=== PATIENT | female | born 1985 | race Caucasian/White ===

== ENCOUNTER 2020-04-28 10:24 | Emergency (ER) | payer OTHER ==
[~2020-04-28] VITALS: Ht 177.8 cm; Wt 81.7 kg
[2020-04-28] MEDS ORDERED: Bactrim Ds Tab1 EACH PO (11:01)
== END 2020-04-28 11:23 | disposition home or self-care (01) ==
LOC: ER 10:24
DX: L03.113 Cellulitis of right upper limb (principal); F17.200 Nicotine dependence, unspecified, uncomplicated
CPT/HCPCS: 99283